=== PATIENT | male | born 2000 | race Caucasian/White ===

== ENCOUNTER 2024-12-02 17:52 | Emergency (ER) | payer OTHER ==
[~2024-12-02] VITALS: Ht 177.8 cm; Wt 118.2 kg
[2024-12-02 19:04] VITALS: TEMP 98.2
[2024-12-02] MEDS ORDERED: IBUP-1492 PO (19:19)
[2024-12-02] MEDS ORDERED: ACET-3385 PO (19:19)
[2024-12-02 19:54] VITALS: BP 114/69; PULSE 78; RESP 17; O2SAT 100
== END 2024-12-02 22:18 ==
LOC: EMS 17:52
DX: Z02.89 Encounter for other administrative examinations (principal); I10 Essential (primary) hypertension; F12.90 Cannabis use, unspecified, uncomplicated; Z98.890 Other specified postprocedural states; Z79.899 Other long term (current) drug therapy
CPT/HCPCS: 99283; Z7502